=== PATIENT | male | born 1980 ===

== ENCOUNTER 2021-03-02 10:38 | Outpatient (CLI) | payer OTHER ==
[2021-03-02 11:22] VITALS: BP 159/107
--- NOTE | 2021-03-02 11:22 | SLEEP CARE CONSULTATION ---
Information from patient questionnaire entered by Jocelyn Fuentes MA. I have reviewed and concur with the information entered by Jocelyn Fuentes MA. This document represents the service I personally performed and the decisions made by , Dianne Robertson ARNP. History of Present Illness Service Date and Time: 03/02/2021 1038 Reason for Visit: New patient Chief Complaint: reports: Unrefreshed sleep, Snoring, Observed pauses in breathing Date of Onset: 4 years Usual bedtime: 11:30 PM Time it takes to fall asleep: 30-40 minutes Snores at night: Yes Observed to quit breathing while asleep: Yes Sleeps alone due to snoring: Yes (sometimes) Number of times waking at night: 1-2 times a night Reasons for waking at night: reports: Snoring, Gasping for air, Bathroom, Other ( wake me for snoring) Toss, Turn, or Twitch while sleeping: Yes (some, doesn't wake him up) Recalls having dreams: No (rarely will remember dreams) Usually gets out of bed at: 0700 Feels refreshed in the morning: No Morning headache: Yes (about 30 minutes; 2-3 times a week ) Sleepy or fatigued during the day: No Ever fallen asleep while driving: No Takes day naps: No Dreams during day naps: No Prior sleep studies: No Additional HPI information: I had the pleasure of seeing LUIS SPAIN today regarding the possibility of him having a sleep disorder. His current complaints are unrefreshed, snoring and observed pauses in breathing. His has sent him here because of his loud snoring. She has occasionally slept in another room She has also seen him stop breathing while asleep. He has a hard time waking up in the morning and does not feel well rested after a night's sleep. He also has difficulty going to sleep, average 30-45 minutes and sometimes more. He sometimes will wake up for bathroom at night. Other times his will wake him up by poking his side to have him roll over to reduce snoring. - Parasomnia Symptoms Ever been unable to move upon waking from sleep: No Walks in sleep: No Talks in sleep: No Ever acted out dreams in sleep: No Ever felt weak in the knees when startled or emotional: Yes Bothered by creepy, crawly, restless sensations in legs: Yes (when standing or sitting for long periods of time) Problems with memory or concentration: Yes (concentration mostly, ADHD) Subjective Initial [place] Sleepiness Scale score: 10 (2021) Past Medical History Past Medical History: reports: Hypertension, Impotence, Attention deficit Social History The patient's occupation is a AM. Patient is Unknown and lives in . Have you smoked in the past 12 months: No Alcohol use: Yes Alcohol amount and frequency: 2-3 weekly Caffeine use: Yes Caffeine amount and frequency: 1-2 daily Family History Family history of sleep disordered breathing: No Allergies and Home Medications Drug allergies reviewed: Yes (NKDA) Home medication list reviewed: Yes Allergy and home medication list: Adderall Viagra, prn Review of Systems Weight gain over past 5 years: 10 Cardiovascular: reports: high blood pressure Gastrointestinal: denies: heartburn Neurological: reports: headaches. denies: seizure, head trauma Psychiatric: reports: Attention Deficit Hyperactivity Ear/Nose/Throat: reports: wisdom teeth removed. denies: tonsillectomy Endocrine: denies: thyroid disease Musculoskeletal: reports: back pain Immunologic: reports: allergies to food or environment (seasonal maybe, mild) Physical Exam Vital signs obtained and entered by: Lauren FUENTES CMA AANELSON Blood Pressure: 159/107 (RIGHT) Cuff size: wrist Heart Rate: 103 O2 Saturation: 97 (2 MASKS CLOTH AND PAPER) Height: 5 ft 10 in Weight: 220 lb (UNIFORM AND BOOTS) Body Mass Index: 31.5 BMI Classification: Obese Neck circumference: 16.5 (inches) Mouth and throat: normal Soft palate: long Hard palate: normal Uvula: normal Uvula visualization: 100% Mallampati Class I Tongue: normal in size Tonsils: small Neck: normal w/o lymphadenopathy or thyromegaly Heart: regular rate and rhythm Lungs: clear bilaterally Impression and Plan 1. Suspected Obstructive Sleep Apnea-Hypopnea Syndrome, as suggested by a h istory of loud and irregular snoring, observed cessation of breath while asleep, gasping or choking in sleep, morning headache, unrefreshed sleep, cognitive impairment, and excessive daytime sleepiness. Narrow oropharynx and obesity are common predisposing factors for obstructive sleep apnea-hypopnea syndrome. I recommend proceeding to polysomnography to confirm the diagnosis and to assess severity. If the patient has significant sleep disordered breathing, a manual CPAP titration study will also be performed to find the optimal treatment pressure. I informed the patient of what the sleep studies involve and after some discussion, obtained agreement to proceed. The pathophysiology of obstructive sleep apnea-hypopnea syndrome was discussed with the patient and health risks of cardiovascular and cerebrovascular disease if not treated. AAS brochure for obstructive sleep apnea-hypopnea syndrome given and reviewed. Risks of drowsy driving discussed in detail and patient advised to avoid long distance driving and to focus puller at the first sign of drowsiness. Patient agreed to plan. * Schedule polysomnography. * Avoid long distance driving or driving when feeling sleepy. * Avoid alcohol, sedative and muscle relaxant around bedtime. * Attempt to lose weight. * Review instructions provided by trained office staff on how to prepare for the sleep study. * Return for follow-up after sleep study completed. Counseling Topics: Weight loss health impact Visit Type: In Office Time Spent with Patient (minutes): 30 Provider Statement: I spent 100% of the Face to Face Visit with the patient with greater than 50% spent counseling the patient and coordination of care.
== END 2021-03-02 10:39 | disposition home or self-care (01) ==
LOC: SC 10:38
PROVIDERS: ATTEND Nurse Practitioner Family
DX: R06.83 Snoring (principal); R51.9 Headache, unspecified; G47.10 Hypersomnia, unspecified; R41.89 Other symptoms and signs involving cognitive functions and awareness; R06.81 Apnea, not elsewhere classified; G47.8 Other sleep disorders; E66.9 Obesity, unspecified; Z68.31 Body mass index [BMI] 31.0-31.9, adult
CPT/HCPCS: 99203; 99212

== ENCOUNTER 2021-04-11 20:16 | Outpatient (CLI) | payer OTHER | END 2021-04-11 20:17 | disposition home or self-care (01) | LOC: SC 20:16 | PROVIDERS: ATTEND Nurse Practitioner Family | DX: G47.33 Obstructive sleep apnea (adult) (pediatric) (principal); G47.61 Periodic limb movement disorder | CPT/HCPCS: 95810 ==

== ENCOUNTER 2021-04-22 13:49 | Outpatient (CLI) | payer OTHER ==
[2021-04-22 14:30] VITALS: BP 120/75
--- NOTE | 2021-04-22 14:30 | SLEEP CARE CONSULTATION ---
Information from patient questionnaire entered by Jocelyn Soto MA. I have reviewed and concur with the information entered by Jocelyn Soto MA. This document represents the service I personally performed and the decisions made by , Dianne Robertson ARNP. History of Present Illness Service Date and Time: 04/22/2021 1349 Initial [place] Sleepiness Scale score: 10 (2021) Current [place] Sleepiness Scale score: 11 (2021) Additional HPI information: LUIS SPAIN returns for follow up and results of the recently performed polysomnography. I explained the pathophysiology behind obstructive sleep apnea. We then spent quite a bit of time discussing different treatment options. For mild obstructive sleep apnea, surgery and oral appliance are alternatives to nasal CPAP therapy but in moderate or severe cases, nasal CPAP is the most effective and reliable treatment. Because apnea is primarily in supine position, then positional management therapy could be effective. Methods discussed such as positioning with pillows to prevent supine sleep. I reviewed the impact of weight changes on sleep apnea and strongly recommended losing weight. After some discussion, the patient opted to go with the nasal CPAP therapy. Nasal autoCPAP set at 4-15 cmH20 will be ordered with rationale explained. A manual titration study will be ordered if unable to find optimal pressure with office adjustments. I explained how CPAP machine works and what to expect when using the machine. Using CPAP every night in order to get used to it was emphasized. Patient advised to put CPAP mask on before getting into bed so as not to fall asleep without CPAP. To assist acclimation to CPAP use, it could also be used for a short time during day while reading or watching TV. The patient was instructed to call the CPAP supplier to discuss any mechanical problem that may occur. If the mask given is uncomfortable or is difficult to keep on through the night even with adjustment, contact the CPAP supplier as many will replace with another mask style if notified before 30 days. If snoring or perceives is not getting enough air or too much air from the machine, notify this office. AASM patient education PAP tips reviewed and given to patient. Patient counseled not drink alcohol less than 4 hours before bedtime as it can increase snoring and apnea. Patient was cautioned about risks of drowsy driving until sleepiness symptoms resolve. Sleep Study - Results Type of Sleep Study: Polysomnography (F/U POLY) Prior sleep studies: No Polysomnography/Home Sleep Study results: IMPRESSION: The quality of the study is good. The patient had normal sleep efficiency. The sleep architecture was abnormal for sleep fragmentation and reduced amount of time spent in REM and slow wave sleep (N3). Respiratory monitoring showed mild obstructive sleep apnea-hypopnea (AHI = 12.1) associated with frequent arousals, oxyhemoglobin desaturation and mild hypoxia (zachary oxygen saturation of 85%). The respiratory events occurred mainly during REM sleep (supine AHI = 15.2; non-supine = 5.48). Snore was light to loud in intensity. There was mild periodic leg movement of sleep not contributing to the sleep fragmentation. Cardiac rhythm was normal sinus rhythm with occasional premature ventricular contractions. No abnormal behavior (parasomnia) observed during the night. Allergies and Home Medications Known drug allergies: No Drug allergies reviewed: Yes Home medication list reviewed: Yes (no changes) Review of Systems Review of systems same as previous: Yes (no changes) Physical Exam Vital signs obtained and entered by: CHRISTIAN MARTINEZ Blood Pressure: 120/75 (95 PULSE, RIGHT, RESP 16, ) Cuff size: wrist Heart Rate: 97 O2 Saturation: 97 (CLOTH MASK) Height: 5 ft 10 in Weight: 220 lb Body Mass Index: 31.5 BMI Classification: Obese Impression and Plan 1. Obstructive Sleep Apnea-Hypopnea Syndrome, mild, with lowest oxygen saturation of 85%. Obviously this is the cause of the patients symptoms of unrefreshed sleep, and excessive daytime sleepiness. Positive pressure therapy could benefit hypertension and attention deficit. As mentioned above, the patient will be started on nasal autoCPAP therapy with pressure set at 4-15 cmH2 O. A manual titration study will be completed if unable to find optimal treatment pressure with office adjustments. Compliance guidelines also reviewed. A copy of compliance guidelines will be given for reference at check out. Because the apnea is more severe supine, I instructed to avoid sleeping supine using pillow positioning until able to start CPAP use. * Nasal auto CPAP therapy, pressure at 4-15 cm H2O. * Attempt to lose weight. * Avoid alcohol consumption near bedtime. * Avoid supine sleep until using CPAP. * The patient is again cautioned about driving until sleepiness completely resolves. * Return one month after CPAP obtained. I will assess response to therapy and compliance at that time. Counseling Topics: Weight loss health impact Visit Type: In Office Time Spent with Patient (minutes): 20 Provider Statement: I spent 100% of the Face to Face Visit with the patient with greater than 50% spent counseling the patient and coordination of care.
== END 2021-04-22 13:50 | disposition home or self-care (01) ==
LOC: SC 13:49
PROVIDERS: ATTEND Nurse Practitioner Family
DX: G47.33 Obstructive sleep apnea (adult) (pediatric) (principal); E66.9 Obesity, unspecified; Z68.31 Body mass index [BMI] 31.0-31.9, adult
CPT/HCPCS: 99212; 99213